=== PATIENT | male | born 1970 | race Caucasian/White ===

== ENCOUNTER 2016-11-28 12:16 | Emergency (ER) | payer BC ==
[~2016-11-28] VITALS: Ht 180.3 cm; Wt 86.0 kg
[2016-11-28] MEDS ORDERED: LIDOCAINE 1% (XYLOCAINE) 20 ML VIAL INJ ONE (12:40)
[2016-11-28] MEDS ORDERED: BACITRACIN OINTMENT 0.9 GM PACKET TOP ONE (12:40)
[2016-11-28 13:20] VITALS: BP 136/96
== END 2016-11-28 13:15 | disposition home or self-care (01) ==
LOC: ED 12:22
DX: S61.216A Laceration without foreign body of right little finger without damage to nail, initial encounter (principal); W26.0XXA Contact with knife, initial encounter; Y93.89 Activity, other specified; Y92.009 Unspecified place in unspecified non-institutional (private) residence as the place of occurrence of the external cause
CPT/HCPCS: 12001; 99282; 99284